=== PATIENT | male | born 1950 | race Caucasian/White ===

== ENCOUNTER 2016-08-10 08:10 | Day surgery (SDC) | payer MEDICARE ==
[~2016-08-10] VITALS: Ht 177.8 cm; Wt 90.7 kg
[~2016-08-10 08:10] MED LIST: 0.9% Sodium Chloride 1,000 ML IV SCH; LOVA20TA PO; Sodium Chloride LOK Flush 10 mL Syringe IV PRN; fentaNYL-PF 50 mCg/mL 2 mL Inj IVPUSH PRN
[2016-08-10 08:41] VITALS: BP 146/78; PULSE 74; RESP 16; O2SAT 99
--- NOTE | 2016-08-10 09:46 | PCM.ENDCOL ---
Colonoscopy Date of Service: Aug 10, 2016 Physician London Barber MD Indication for Procedure Family history of colon cancer and personal history of polyps Post Procedure Dx & Findings: Colon polyp hemorrhoids diverticula Procedure Colonoscopy Prep adequate Cecum 5 minutes Withdrawal 12 minutes PROCEDURE IN DETAIL: After unremarkable rectal examination limited Olympus video colonoscope was inserted into patient's anal canal was advanced to cecum. Landmarks are identified including the ileocecal valve and appendiceal orifice. Was withdrawn systematically. The mucosa of the cecum, ascending, transverse, descending, sigmoid, rectal mucosa lined with whitish, pink, smooth, glistening, normal-appearing mucosa, normal fine branching, underlying vascularity, normal haustra. The patient tolerated procedure and was transported to observation area. In the rectosigmoid junction, there was a 3 mm polyp which was resected completely using cold snare. In the sigmoid colon, there are few small diverticula In the rectum retroflexion was done which showed mild hemorrhoids and anal canal inspected carefully in the way and hemorrhoids noted. Impression Polyp status post complete removal Hemorrhoids Diverticula Family history of colon cancer and personal history of colon polyp Recommendation Repeat colonoscopy 5 years Presedation Assessment Risks and Benefits Informed consent was obtained from the patient after all risks and benefits including but not limited to drug reaction, infection, pain, bleeding, perforation, as well as alternatives were discussed. Patient monitoring Continuous pulse oximetry, cardiac monitoring, blood pressure monitoring, IV access, and oxygen at 2L per nasal cannula. Periprocedural Fentanyl: Fentanyl 75mcg Incrementally Midazolam: Midazolam 4mg Incrementally Complications There were no periprocedural complications identified. Post Procedure Plan Post Procedure Recommendations 1. Restrict activities today. 2. Resume normal activities in the morning. 3. Resume medications. 4. Patient informed of normal post procedure side effects as bloating, drowsiness, blood streaking in the stool. 5. average risk CRCS. If colon polyps come back as: -Hyperplastic- can repeat colonoscopy in 10 years -Tubular adenoma- repeat colonoscopy in 5 years -Tubulovillous/villous adenoma- repeat colonoscopy in 3 years -If any dysplasia- return to clinic as soon as possible 6. Please don't hesitate to call me with any questions. London Barber MD Aug 10, 2016 09:46
[2016-08-10 09:50] VITALS: BP 132/70; PULSE 62; RESP 14; O2SAT 95
[2016-08-10 10:00] VITALS: BP 128/66; PULSE 62; RESP 14; O2SAT 96
[2016-08-10 10:10] VITALS: BP 137/76; PULSE 65; RESP 14; O2SAT 97
--- NOTE | 2016-08-11 11:54 | PATH ---
SURGICAL PATHOLOGY Attending Physician:London Barber M.D. CASE STATUS: Signed Out PATIENT NAME: BOONE RUBY PID: [id number] : 1950 DATE COLLECTED:08/10/2016 17:55 SPECIMEN: Colon, Biopsy CLINICAL HISTORY: A: RECTOSIGMOID POLYP FINAL DIAGNOSIS: 1.RECTOSIGMOID POLYP: TUBULAR ADENOMA. ICD10 CODE D12.7 GROSS DESCRIPTION: The specimen is received in one formalin filled container labeled with the patient's name, sublabeled "rectosigmoid polyp" and consists of a 0.2 x 0.2 x 0.1 CM portion of tissue which is entirely submitted in one cassette. 08/10/2016 DAC MICRO DESCRIPTION: See diagnosis. ICD-9 CODES: CPT CODES: 1: 89565 Electronically Signed Out Francisco Green MD [facility] Pathology [facility] [address], [place] [address] Technical component performed at [facility], [facility] [address], [place], [address]
== END 2016-08-10 23:59 | disposition home or self-care (01) ==
LOC: END 08:10
PROVIDERS: ATTEND Internal Medicine
DX: Z12.11 Encounter for screening for malignant neoplasm of colon (principal); Z86.010 Personal history of colon polyps; D12.7 Benign neoplasm of rectosigmoid junction; K57.90 Diverticulosis of intestine, part unspecified, without perforation or abscess without bleeding; K64.9 Unspecified hemorrhoids
CPT/HCPCS: 45385; G0500; J2250; J7030